=== PATIENT | female | born 2000 | race Two or more races ===

== ENCOUNTER 2020-09-01 06:49 | Emergency (ER) | payer SELFPAY ==
[~2020-09-01] VITALS: Ht 162.6 cm; Wt 45.4 kg
[2020-09-01] MEDS ORDERED: SODIUM CHLORIDE 0.9% 1,000 ML IVB ONE (07:00)
[2020-09-01 07:43] LABS: Basophils # (auto) 0 10 ^3/uL (0-0.2); Basophils % (auto) 0.4 % (0.0-2.0); Eosinophils # (auto) 0.1 10 ^3/uL (0-0.8); Eosinophils % (auto) 1.2 % (0.0-7.0); Hematocrit 36.8 % (36.0-46.0); Hemoglobin 12.3 g/dL (12.2-16.2); Lymphocytes # (auto) 4.1 10 ^3/uL (0.4-5.4); Lymphocytes % (auto) 36.2 % (10.0-50.0); Mean Corpuscular Hgb Conc. 33.5 g/dL (32.0-36.0); Mean Corpuscular Volume 95.4 fL (80.0-100.0); Monocytes # (auto) 0.7 10 ^3/uL (0-1.3); Monocytes % (auto) 5.9 % (0.0-12.0); Neutrophils # (auto) 6.4 10 ^3/uL (1.6-8.6); Neutrophils % (auto) 56.3 % (37.0-80.0); Nucleated Red Blood Cells % 0.1 %; Red Blood Cells 3.86 10^6/uL (4.0-5.20); Red Cell Distribution Width 13.8 % (11.8-14.3); White Blood Cell 11.3 10^3/uL (4.4-10.8)
[2020-09-01 07:51] LABS: Chloride 105 mmol/L (98-107); Potassium 3.6 mmol/L (3.5-5.1); Sodium 141 mmol/L (136-145)
[2020-09-01 07:59] LABS: Alanine Aminotransferase 242 U/L (13-56); Albumin 3.7 g/dL (3.4-5.0); Alkaline Phosphatase 83 U/L (45-117); Anion Gap 15 (5-15); Aspartate Aminotransferase 441 U/L (15-37); BUN/Creatinine Ratio 19.5; Blood Alcohol < 3.0 mg/dL (0-5); Blood Urea Nitrogen 26 mg/dL (7-18); Calcium 8.2 mg/dL (8.5-10.1); Carbon Dioxide 21 mmol/L (21-32); GFR African American 65 mL/min; GFR Non-African American 54 mL/min; Glucose 148 mg/dL (74-106); Total Protein 7.3 g/dL (6.4-8.2)
[2020-09-01 09:48] VITALS: BP 139/95
== END 2020-09-01 10:39 | disposition home or self-care (01) ==
LOC: EDBD 06:49 → ER 06:49
DX: T40.0X1A Poisoning by opium, accidental (unintentional), initial encounter (principal); R11.10 Vomiting, unspecified; R94.31 Abnormal electrocardiogram [ECG] [EKG]; Y92.89 Other specified places as the place of occurrence of the external cause
CPT/HCPCS: 36415; 80053; 80320; 85025; 93005; 96360; 96361; 99285; J7030